=== PATIENT | female | born 1995 | race Caucasian/White ===

== ENCOUNTER 2022-02-05 17:12 | Emergency (ER) | payer OTHER ==
[2022-02-05 17:30] VITALS: BP 111/67; PULSE 110; RESP 18; TEMP 99.8; BMI 17.9
[2022-02-05 19:30] LABS: HEMATOCRIT 41.6 % (32.4-45.2); HEMOGLOBIN 14.5 GM/dL (10.7-15.3); MCH 29.7 pg (25.7-33.7); MCHC 34.8 g/dl (32.0-36.0); MEAN CELL VOLUME 85.4 fl (80-96); MEAN PLT VOLUME 7.4 fl (7.5-11.1); PLATELET COUNT 341 10^3/uL (134-434); RBC 4.87 M/mm3 (3.60-5.2); RDW 12.7 % (11.6-15.6); WHITE BLOOD COUNT 10.4 K/mm3 (4.0-10.0)
[2022-02-05 20:44] LABS: ANISOCYTOSIS 0; MACROCYTOSIS 0; PLATELET ESTIMATE NORMAL
[2022-02-05 20:48] LABS: CHLORIDE 89 mmol/L (98-107); SODIUM 135 mmol/L (136-145)
[2022-02-05 20:50] LABS: ALBUMIN 3.7 g/dl (3.4-5.0); CALCIUM 9.2 mg/dL (8.5-10.1)
[2022-02-05 20:51] LABS: BLOOD UREA NITROGEN 19.6 mg/dL (7-18); CO2 36 mmol/L (21-32); GLUCOSE,RANDOM 93 mg/dL (74-106)
[2022-02-05 20:53] LABS: SGPT/ALT 34 U/L (13-61)
[2022-02-05 20:54] LABS: SGOT/AST 29 U/L (15-37)
[2022-02-05 20:55] LABS: BILIRUBIN,TOTAL 0.7 mg/dL (0.2-1)
[2022-02-05 20:57] LABS: ALK PHOS 46 U/L (45-117)
[2022-02-05 21:05] LABS: ANION GAP 10 MMOL/L (8-16)
[2022-02-05] MEDS ORDERED: POTASSIUM CHLORIDE ORAL LIQUID 20 MEQ/15 ML PO ONE (21:07)
[2022-02-05 21:38] LABS: EPI CELLS >36 /uL (0-25.1); HYALINE CASTS 0 /uL (0-3.1); URINE APPEARANCE CLEAR; URINE BACTERIA 3044 /uL (0-1359); URINE BILIRUBIN NEGATIVE (NEGATIVE); URINE COLOR YELLOW; URINE GLUCOSE (UA) NEGATIVE (NEGATIVE); URINE KETONE NEGATIVE (NEGATIVE); URINE LEUK ESTERASE TRACE (NEGATIVE); URINE NITRITE NEGATIVE (NEGATIVE); URINE PROTEIN NEGATIVE (NEGATIVE); URINE WBC 30 /uL (0-25.8)
[2022-02-05 22:38] LABS: URINE RBC 20.4 /uL (0-23.9)
[2022-02-05] MEDS ORDERED: POTASSIUM CHLORIDE ORAL LIQUID 20 MEQ/15 ML ONE (22:57)
[2022-02-06] MEDS ORDERED: POTASSIUM CHLORIDE ORAL LIQUID 20 MEQ/15 ML PO ONE (01:45)
[2022-02-06] MEDS ORDERED: POTASSIUM CHLORIDE ORAL LIQUID 20 MEQ/15 ML ONE (01:48)
== END 2022-02-06 02:50 | disposition home or self-care (01) ==
LOC: JER 17:12
DX: U07.1 COVID-19 (principal); E87.6 Hypokalemia; R10.9 Unspecified abdominal pain
CPT/HCPCS: 0241U-QW; 36415; 74177-TC; 80053; 81003; 84132; 84703; 85025; 87086; 99285-25; Q9967

== ENCOUNTER 2023-07-07 04:27 | Day surgery (SDC) | payer OTHER ==
[2023-07-03 14:24] VITALS: BMI 18.8
[2023-07-07] MEDS ORDERED: MIDAZOLAM HCL 2 MG/2 ML SINGLE DOSE VIAL ONE (11:50)
[2023-07-07] MEDS ORDERED: FENTANYL CITRATE/PF 50 MCG/ML VIAL ONE ×2 (11:50→12:29)
[2023-07-07] MEDS ORDERED: PROPOFOL 20 ML ONE (11:50)
[2023-07-07] MEDS ORDERED: LIDOCAINE HCL/PF 2% SDV 5ML VIAL ONE (12:30)
[2023-07-07] MEDS ORDERED: LIDOCAINE 1%/EPI 1:100000 (20 ML MULTI DOSE VIAL) ONE (12:42)
[2023-07-07] MEDS: ceFAZolin SODIUM 1 GM VIAL IVPB ONE (12:45)
[2023-07-07] MEDS: LIDOCAINE 1%/EPI 1:100000 (20 ML MULTI DOSE VIAL) IJ ONE (12:53)
[2023-07-07] MEDS ORDERED: DEXAMETHASONE SOD PHOSPHATE 4 MG/1 ML VIAL ONE (13:10)
[2023-07-07] MEDS ORDERED: ONDANSETRON 4 MG/2 ML VIAL ONE (13:10)
[2023-07-07] MEDS ORDERED: KETOROLAC TROMETHAMINE 30 MG/1 ML VIAL ONE (13:10)
[2023-07-07] MEDS ORDERED: ceFAZolin SODIUM 1 GM VIAL ONE (13:10)
[2023-07-07] MEDS ORDERED: oxyCODONE HCL 5 MG TABLET PO PRN (13:17)
[2023-07-07] MEDS ORDERED: ONDANSETRON 4 MG/2 ML VIAL IVPUSH PRN (13:17)
[2023-07-07] MEDS ORDERED: ACETAMINOPHEN 1000 MG/100 ML BAG IVPB ONE ×2 (13:18)
[2023-07-07] MEDS ORDERED: LACTATED RINGERS SOLUTION 1,000 ML IV SCH (13:30)
[2023-07-07] MEDS: ACETAMINOPHEN INJECTION 100 ML IVPB ONE (14:25)
[2023-07-07 14:28] VITALS: RESP 18
[2023-07-07 15:05] VITALS: TEMP 97.7
[2023-07-07 16:18] VITALS: BP 91/57; PULSE 58
== END 2023-07-07 16:19 | disposition home or self-care (01) ==
LOC: JASU-SURG 04:27
PROVIDERS: ATTEND Obstetrics & Gynecology
PROC: 0UBC7ZX Excision of Cervix, Via Natural or Artificial Opening, Diagnostic (ICD-10-PCS; principal; 2023-07-07 11:00)
DX: N87.1 Moderate cervical dysplasia (principal)
CPT/HCPCS: 81025; 88305-TC; 88307-TC; 88341-TC; 88342-TC; 94760; J0131